=== PATIENT | male | born 1990 | race African-American/Black ===

== ENCOUNTER 2023-08-06 15:48 | Emergency (ER) | payer SELFPAY ==
[~2023-08-06] VITALS: Ht 170.2 cm; Wt 70.0 kg
[2023-08-06 15:51] VITALS: BP 105/40; PULSE 61; RESP 16; TEMP 98; O2SAT 100
== END 2023-08-06 17:45 | disposition home or self-care (01) ==
LOC: ER 15:48
DX: S09.90XA Unspecified injury of head, initial encounter (principal); R55 Syncope and collapse; X58.XXXA Exposure to other specified factors, initial encounter; Y93.89 Activity, other specified; Y92.89 Other specified places as the place of occurrence of the external cause; Y99.8 Other external cause status
CPT/HCPCS: 12002; 99283; Z7610 ×2